=== PATIENT | male | born 2000 | race American Indian/Alaskan Native ===

== ENCOUNTER 2021-07-08 15:01 | Emergency (ER) | payer SELFPAY ==
[2021-07-08 16:27] VITALS: BP 145/88
== END 2021-07-09 07:17 | disposition left against medical advice (07) ==
LOC: ED 15:01
DX: Z00.00 Encounter for general adult medical examination without abnormal findings (principal); Z53.21 Procedure and treatment not carried out due to patient leaving prior to being seen by health care provider

== ENCOUNTER 2021-07-09 11:38 | Emergency (ER) | payer BC ==
[2021-07-09] MEDS ORDERED: LIDOCAINE-MPF (1%) 10 MG/1 ML VIAL 5 ML INFILTRATI ONE (12:02)
--- NOTE | 2021-07-09 12:02 | Emergency Department Report ---
ED Male HPI - General Chief complaint: Urogenital-Male Stated complaint: CHLAMYDIA TREATMENT Time Seen by Provider: 07/09/21 11:52 Source: patient Mode of arrival: Ambulatory Limitations: No Limitations - History of Present Illness Initial comments: Patient presents with penile discharge. 4 days ago he got a phone call stating that he was exposed to an infection. He has developed swollen lymph nodes, penile discharge, and dysuria. He has had chlamydia previously. He believes he has the same thing. Patient has no rash. He has had no trauma. He has no abdominal pain. He denies GI symptoms. He is sexually active without contraception. - Related Data Previous Rx's Medication Instructions Recorded Last Taken Type Doxycycline Monohydrate 100 mg PO BID #20 cap 07/09/21 Unknown Rx [Doxycycline Monohydrate CAP] Allergies Allergy/AdvReac Type Severity Reaction Status Date / Time No Known Allergies Allergy Verified 07/08/21 16:24 ED Review of Systems ROS: Stated complaint: CHLAMYDIA TREATMENT Other details as noted in HPI Comment: All other systems reviewed and negative Constitutional: denies: fever Eyes: denies: eye discharge ENT: denies: throat pain Respiratory: denies: cough Cardiovascular: denies: chest pain Endocrine: denies: unexplained weight loss Gastrointestinal: denies: abdominal pain Genitourinary: as per HPI Musculoskeletal: denies: back pain Skin: denies: rash Neurological: denies: headache Hematological/Lymphatic: denies: easy bruising ED Past Medical Hx - Past Medical History Additional medical history: Chlamydia - Family History Family history: no significant - Social History Smoking Status: Current Some Day Smoker Substance Use Type: Marijuana - Medications Home Medications: Home Medications Medication Instructions Recorded Confirmed Last Taken Type Doxycycline Monohydrate 100 mg PO BID #20 cap 07/09/21 Unknown Rx [Doxycycline Monohydrate CAP] ED Physical Exam - General Limitations: No Limitations, Other (Pulse ox noted and normal) General appearance: alert, in no apparent distress - Head Head exam: Present: atraumatic, normocephalic - Eye Eye exam: Present: normal appearance, EOMI - ENT ENT exam: Present: normal external ear exam - Neck Neck exam: Present: normal inspection - Respiratory Respiratory exam: Absent: respiratory distress - Cardiovascular Cardiovascular Exam: Absent: JVD - GI/Abdominal GI/Abdominal exam: Present: soft. Absent: tenderness - exam: Present: urethral discharge (Quite), circumcision, other (Inguinal lymphadenopathy bilaterally) - Extremities Exam Extremities exam: Present: normal capillary refill - Back Exam Back exam: Present: full ROM - Neurological Exam Neurological exam: Present: alert, oriented X3, normal gait. Absent: motor sensory deficit - Psychiatric Psychiatric exam: Present: normal affect, normal mood - Skin Skin exam: Present: warm, dry ED Course Vital Signs 07/09/21 11:49 Temperature 98.0 F Pulse Rate 91 H Respiratory 18 Rate Blood Pressure 150/82 O2 Sat by Pulse 100 Oximetry - Reevaluation(s) Reevaluation #1: 07/09/21 12:06 Rocephin and doxycycline were started. ED Medical Decision Making - Medical Decision Making Patient presents with penile discharge in the setting of a known sexually transmitted infection exposure. He has had chlamydia before. There is no ulcer suggestive of herpes. He has no other rash suggestive of syphilis. Patient was treated for gonorrhea and chlamydia and discharged. We did have a discussion about safe sex practices. Critical Care Time: No Critical care attestation.: If time is entered above; I have spent that time in minutes in the direct care of this critically ill patient, excluding procedure time. ED Disposition Clinical Impression: Urethritis Disposition: HOME / SELF CARE / HOMELESS Is pt being admited?: No Condition: Stable Instructions: Urethritis, Adult Additional Instructions: Take the antibiotics. Drink water. Use condoms. Do not have intercourse until after you have completed antibiotics. Follow-up with your family doctor and regular doctor for recheck. Notify all of your partners about your infection. Prescriptions: Doxycycline Monohydrate [Doxycycline Monohydrate CAP] 100 mg PO BID #20 cap Referrals: PRIMARY [facility]EM[facility] [Referring] - 3-5 Days YOLANDA BAILEY MD [Staff Physician] - 3-5 Days Forms: STI Treatment and Prevention
[2021-07-09 12:12] VITALS: BP 112/65
== END 2021-07-09 12:17 | disposition home or self-care (01) ==
LOC: ED 11:38
DX: N34.2 Other urethritis (principal); F17.200 Nicotine dependence, unspecified, uncomplicated
CPT/HCPCS: 96372; 99282; J0696; J3490